=== PATIENT | male | born 1970 | race Caucasian/White ===

== ENCOUNTER 2020-10-18 08:30 | Emergency (ER) | payer OTHER ==
[~2020-10-18] VITALS: Ht 177.8 cm; Wt 116.0 kg
[2020-10-18 08:39] VITALS: BP 164/75
--- NOTE | 2020-10-18 09:55 | RAD ---
XR FOOT_LEFT 3 VIEWS, XR EXAM OF ANKLE_LEFT 3V History: Inversion injury. Lateral foot and ankle pain. Comparison: Left ankle x-ray 09/07/2020. Left ankle CT 09/08/2019. Technique: 3 views of the left foot. 3 views of left ankle. Findings: Osseous mineralization is normal. No fracture or dislocaton. Ankle mortise is symmetric. There is a 1 .4 cm lucency at the medial talus bordering the medial tibiotalar joint which is a contour deformity seen on prior CT, possibly sequela of old injury. The Lisfranc is normally aligned. Small ossificatio ns at the medial malleolar and lateral malleolar tips with sequela of old injury. Degenerative change s of the anterior tibiotalar joint. Diffuse soft tissue swelling of the ankle. Impression: 1. No acute osseous abnormality of the left foot and ankle. Redemonstrated chronic degenerative/post traumatic changes. Electronically signed by: Addison Edward MD (10/18/2020 9:53 AM) [id number]
--- NOTE | 2020-10-18 10:14 | PHYS DOC ---
Past History Past Medical History: Hypertension Additional Past Medical Histor: Prostate Cancer Past Surgical History: Other Additional Past Surgical Histo: Prostectomy, right leg Smoking: Non-smoker Alcohol Use: Occasionally Drug Use: None Adult General Chief Complaint Chief Complaint: ANKLE PROBLEM [facility] HPI Patient is a [age] year old [sex] who presents with [] Review of Systems Review of Systems Constitutional: Denies fever or chills [] Eyes: Denies change in visual acuity, redness, or eye pain [] HENT: Denies nasal congestion or sore throat [] Respiratory: Denies cough or shortness of breath [] Cardiovascular: No additional information not addressed in HPI [] GI: Denies abdominal pain, nausea, vomiting, bloody stools or diarrhea [] : Denies dysuria or hematuria [] Musculoskeletal: Denies back pain or joint pain [] Integument: Denies rash or skin lesions [] Neurologic: Denies headache, focal weakness or sensory changes [] Endocrine: Denies polyuria or polydipsia [] All other systems were reviewed and found to be within normal limits, except as documented in this note. Allergies Allergies Allergies Coded Allergies Type Severity Reaction Last Updated Verified No Known Drug Allergies 06/27/13 No Physical Exam Physical Exam Constitutional: Well developed, well nourished, no acute distress, non-toxic appearance. [] HENT: Normocephalic, atraumatic, bilateral external ears normal, oropharynx moist, no oral exudates, nose normal. [] Eyes: PERRLA, EOMI, conjunctiva normal, no discharge. [] Neck: Normal range of motion, no tenderness, supple, no stridor. [] Cardiovascular:Heart rate regular rhythm, no murmur [] Lungs & Thorax: Bilateral breath sounds clear to auscultation [] Abdomen: Bowel sounds normal, soft, no tenderness, no masses, no pulsatile masses. [] Skin: Warm, dry, no erythema, no rash. [] Back: No tenderness, no CVA tenderness. [] Extremities: No tenderness, no cyanosis, no clubbing, ROM intact, no edema. [] Neurologic: Alert and oriented X 3, normal motor function, normal sensory function, no focal deficits noted. [] Psychologic: Affect normal, judgement normal, mood normal. [] Current Patient Data Vital Signs Vital Signs Date Time Temp Pulse Resp B/P (MAP) Pulse Ox O2 Delivery O2 Flow Rate FiO2 10/18/20 08:39 97.8 70 16 164/75 99 Room Air EKG EKG [] Radiology/Procedures Radiology/Procedures XR FOOT_LEFT 3 VIEWS, XR EXAM OF ANKLE_LEFT 3V History: Inversion injury. Lateral foot and ankle pain. Comparison: Left ankle x-ray 09/07/2020. Left ankle CT 09/08/2019. Technique: 3 views of the left foot. 3 views of left ankle. Findings: Osseous mineralization is normal. No fracture or dislocaton. Ankle mortise is symmetric. There is a 1.4 cm lucency at the medial talus bordering the medial tibiotalar joint which is a contour deformity seen on prior CT, possibly sequela of old injury. The Lisfranc is normally aligned. Small ossifications at the medial malleolar and lateral malleolar tips with sequela of old injury. Degenerative changes of the anterior tibiotalar joint. Diffuse soft tissue swelling of the ankle. Impression: 1. No acute osseous abnormality of the left foot and ankle. Redemonstrated chronic degenerative/posttraumatic changes. Electronically signed by: Addison Edward MD (10/18/2020 9:53 AM) [id number] Heart Score Risk Factors: Risk Factors: DM, Current or recent (<one month) smoker, HTN, HLP, family history of CAD, obesity. Risk Scores: Risk Factors: DM, Current or recent (<one month) smoker, HTN, HLP, family history of CAD, obesity. Course & Med Decision Making Course & Med Decision Making Pertinent Labs and Imaging studies reviewed. (See chart for details) [] Dragon Disclaimer Dragon Disclaimer This electronic medical record was generated, in whole or in part, using a voice recognition dictation system. Departure Departure: Impression: Primary Impression: Left foot pain Disposition: HOME / SELF CARE / HOMELESS Condition: STABLE Referrals: BEATRIZ ARANGO (PCP) Patient Instructions: Ankle Exercises, Generic-SportsMed, RICE - Routine Care for Injuries Additional Instructions: You have been evaluated in the Emergency Department today for ankle pain. The x- ray of your ankle did not show any acute bony abnormalities. You can alternate Tylenol and/or Motrin every 4-6 hours to help control your pain. Please also rest, ice, and elevate your ankle to control your pain. As disclosed please contact your primary care physician to review need for close outpatient follow-up on ankle in addition to your GERD/hiatal hernia Return to the Emergency Department if you experience worsening pain, numbne ss/tingling, change of color in your toes, or any other concerning symptoms. BARBARA SILVESTRE DO Oct 18, 2020 10:14
== END 2020-10-18 11:00 | disposition home or self-care (01) ==
LOC: ER 08:30
DX: M79.672 Pain in left foot (principal); M25.572 Pain in left ankle and joints of left foot; I10 Essential (primary) hypertension
CPT/HCPCS: 73610; 73630; 99284

== ENCOUNTER → 2021-01-10 | Outpatient (CLI) | payer OTHER ==
[~2021-01-10] MED LIST: IOHEXOL 240 MG/ML 50ML VIAL. ONE; IOHEXOL 300 MG/ML 75 ML VIAL. IV ONE
--- NOTE | 2021-01-10 16:35 | RAD ---
EXAM: CT Abdomen and Pelvis with IV contrast CLINICAL HISTORY: MASS AT STERNUM, HX OF PROSTATE CA COMPARISON: none TECHNIQUE: Helical CT of the abdomen and pelvis was performed following the administration of intrave nous contrast. Axial, coronal and sagittal reformatted images were generated. PQRS compliance statement - One or more of the following individualized dose reduction techniques wer e utilized for this study: 1. Automated exposure control 2. Adjustment of the mA and/or kV according to patient size 3. Use of iterative reconstruction technique FINDINGS: Lower Chest: Lung bases are clear. Abdomen and Pelvis: Hepatic hypoattenuation, fatty liver. Subcentimeter hypodense posterior right hepatic lobe lesion is too small to accurately characterize but likely cystic. Gallbladder is normal. No biliary ductal dila tation. Pancreas and spleen as well as adrenal glands are unremarkable. Symmetric nephrograms. No focal renal lesion. No hydronephrosis. No hydroureter. Bladder is unremarka ble. Aorta is normal caliber. No abdominal or pelvic lymphadenopathy. Appendix is normal. Moderate colonic stool content is seen. No small or large bowel dilatation. No spencer wel obstruction. Trace fat-containing periumbilical hernia. Limbus vertebra at L4. Degenerative changes of the spine are seen, most prominent at L4-5. No obvious sternal mass is seen however there is anterior angulation of the distal sternum/xiphoid IMPRESSION: 1. No obvious sternal mass is seen however there is anterior angulation of the distal sternum/xiphoi d 2. Hepatic hypoattenuation, fatty liver. 3. No bowel obstruction. Electronically signed by: Abhijeet Lopez MD (01/10/2021 4:33 PM) [facility]
== END ==
LOC: CT 12:39
PROVIDERS: ATTEND Nurse Practitioner Family
DX: K76.0 Fatty (change of) liver, not elsewhere classified (principal); R19.5 Other fecal abnormalities; M47.816 Spondylosis without myelopathy or radiculopathy, lumbar region; M43.8X6 Other specified deforming dorsopathies, lumbar region; Z85.46 Personal history of malignant neoplasm of prostate
CPT/HCPCS: 74177; Q9967